=== PATIENT | male | born 1970 | race Caucasian/White ===

== ENCOUNTER 2018-04-20 22:24 | Emergency (ER) | payer OTHER ==
[~2018-04-20] VITALS: Ht 188 cm; Wt 129.3 kg
== END 2018-04-21 12:00 | disposition designated cancer center or children's hospital (05) ==
LOC: ER 22:24
DX: J69.0 Pneumonitis due to inhalation of food and vomit (principal); R09.89 Other specified symptoms and signs involving the circulatory and respiratory systems; T18.128A Food in esophagus causing other injury, initial encounter; X58.XXXA Exposure to other specified factors, initial encounter; Y93.89 Activity, other specified; Y92.89 Other specified places as the place of occurrence of the external cause; Y99.8 Other external cause status